=== PATIENT | female | born 1990 | race Caucasian/White ===

== ENCOUNTER 2021-09-11 19:03 | Emergency (ER) | payer OTHER ==
[2021-09-11 19:39] VITALS: BP 128/76
[2021-09-11] MEDS ORDERED: KLONOPIN0.5 MG PO (20:20)
[2021-09-11 20:28] VITALS: BP 164/68
== END 2021-09-11 20:40 | disposition home or self-care (01) | DRG 880 ==
LOC: ED 19:03
DX: F41.0 Panic disorder [episodic paroxysmal anxiety] (principal)